=== PATIENT | female | born 1960 | race Caucasian/White ===

== ENCOUNTER 2020-01-28 07:32 | Emergency (ER) | payer OTHER ==
[~2020-01-28] VITALS: Ht 165.1 cm; Wt 65.3 kg
[2020-01-28] MEDS ORDERED: AMOCLA875 PO (10:35)
[2020-01-28] MEDS ORDERED: OXYACE7.5T PO (10:35)
== END 2020-01-28 11:16 | disposition home or self-care (01) ==
LOC: ER 07:32
DX: S02.40FA Zygomatic fracture, left side, initial encounter for closed fracture (principal); S70.02XA Contusion of left hip, initial encounter; S00.12XA Contusion of left eyelid and periocular area, initial encounter; W18.30XA Fall on same level, unspecified, initial encounter
CPT/HCPCS: 70450; 70486; 73502; 96374; 96375; 96376; 99284-25; J2405; J3010